=== PATIENT | male | born 1970 | race Caucasian/White ===

== ENCOUNTER 2017-01-08 16:48 | Emergency (ER) | payer OTHER, BC ==
[2017-01-08] MEDS ORDERED: TETRACAINE HCL 0.5% OPH SOLN 2 ML OD ONE (18:17)
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
[2017-01-08 19:11] VITALS: BP 130/70
== END 2017-01-08 19:11 | disposition home or self-care (01) ==
LOC: ER 16:48
DX: H11.421 Conjunctival edema, right eye (principal); H53.8 Other visual disturbances; R03.0 Elevated blood-pressure reading, without diagnosis of hypertension
CPT/HCPCS: 99283